=== PATIENT | male | born 1965 | race Caucasian/White ===

== ENCOUNTER 2020-06-01 15:01 | Inpatient (IN) | payer BC, OTHER ==
[~2020-06-01] VITALS: Ht 172.7 cm; Wt 83.3 kg
[2020-06-01] MEDS ORDERED: ONDANSETRON 2MG/ML, 2ML IVPush ONE (15:30)
[2020-06-01] MEDS ORDERED: PANTOPRAZOLE 40 MG IV IVPush ONE ×2 (15:30→16:00)
[2020-06-01] MEDS ORDERED: SODIUM CHLORIDE FLUSH 10ML SYR IVF ONE (15:30)
[2020-06-01] MEDS ORDERED: FAMOTIDINE 20 MG/2 ML IVPush ONE (15:30)
[2020-06-01] MEDS ORDERED: SODIUM CHLORIDE 0.9% 1,000ML IVBOLUS ONE (15:30)
[2020-06-01] MEDS ORDERED: PANTOPRAZOLE 40 MG IV ONE ×2 (16:00→16:27)
[2020-06-01] MEDS ORDERED: FAMOTIDINE 20 MG/2 ML ONE (16:00)
[2020-06-01] MEDS ORDERED: ONDANSETRON 2MG/ML, 2ML ONE (16:00)
[2020-06-01] MEDS ORDERED: PANTOPRAZOLE 80 MG in SODIUM CHLORIDE 0.9% 100 ML IV SCH (16:00)
[2020-06-01 16:08] LABS: BASOPHILS % (AUTO) 0 % (0-1); EOSINOPHILS % (AUTO) 4 % (1-7); LYMPHOCYTES % (AUTO) 14 % (22-44); MEAN CORPUSCULAR HEMOGLOBIN 29.6 pg (27.5-34.5); MEAN CORPUSCULAR HGB CONC 32.8 g/dL (33.2-36.2); MEAN PLATELET VOLUME 8.1 fL (7.4-10.4); MONOCYTES % (AUTO) 7 % (2-9); NEUTROPHILS % (AUTO) 75 % (42-75); PLATELET COUNT 278 x10^3/uL (130-400); RED BLOOD COUNT 3.91 x10^6/uL (4.38-5.82); RED CELL DISTRIBUTION WIDTH 13.9 % (9.4-14.8)
[2020-06-01 16:09] LABS: MD NO
[2020-06-01 16:18] LABS: ALANINE AMINOTRANSFERASE 34 U/L (12-78); ALBUMIN 3.1 g/dL (3.4-5.0); CALCIUM 7.7 mg/dL (8.5-10.1); CHLORIDE 113 mmol/L (98-107); CREATININE 0.77 mg/dL (0.7-1.3)
[2020-06-01 16:20] LABS: ALKALINE PHOSPHATASE 101 U/L (45-117); BILIRUBIN,TOTAL 0.3 mg/dL (0.2-1.0)
[2020-06-01 16:31] LABS: ANION GAP 4 mmol/L (5-15)
[2020-06-01] MEDS ORDERED: ONDANSETRON ODT 4 MG PO PRN (17:00)
[2020-06-01] MEDS ORDERED: ACETAMINOPHEN 325 MG TABLET PO PRN (17:00)
[2020-06-01] MEDS ORDERED: ONDANSETRON 2MG/ML, 2ML IVPush PRN (17:00)
[2020-06-01] MEDS: PANTOPRAZOLE 80 MG in SODIUM CHLORIDE 0.9% 100 ML IV SCH (17:00)
[2020-06-01] MEDS: CEFTRIAXONE PMX 2GM/50ML 50 ML IVPB SCH (17:00)
[2020-06-01] MEDS: SODIUM CHLORIDE 0.9% 1,000 ML IV SCH (17:00)
[2020-06-01] MEDS ORDERED: CEFTRIAXONE PMX 1GM/50ML 50 ML ONE (17:18)
[2020-06-01] MEDS ORDERED: CEFTRIAXONE PMX 2GM/50ML 50 ML ONE (17:26)
[2020-06-01 18:03] LABS: INTERNATIONAL NORMALIZED RATIO 1.08 (0.93-1.1); PROTHROMBIN TIME 11.4 Seconds (9.6-11.5)
--- NOTE | 2020-06-01 18:18 | NUR ---
PT COMES IN WITH COMPLAINT OF VOMITING BLOOD STARTING APPROXIMATELY 45 MINUTES PRIOR TO ARRIVAL. PT RESTING IN OMAR CHAN AT THIS TIME, AT BEDSIDE, MONITORING IN PLACE. PER PT NO NEEDS AT THIS TIME, WILL CONTINUE TO MONITOR.
[2020-06-01] MEDS ORDERED: METRONIDAZOLE PMX 500MG/100ML 100 ML ONE (19:05)
[2020-06-01] MEDS: METRONIDAZOLE PMX 500MG/100ML 100 ML IV SCH (19:10)
--- NOTE | 2020-06-01 19:13 | NUR ---
Covering for break. Pt a/ox4 no active n/v. IV #2 started, flagyl infusing. VSS, NPO status reaffirmed with pt. Waiting for tele bed. AIDET provided.
[2020-06-01] MEDS ORDERED: ONDANSETRON ODT 4 MG ONE (19:16)
--- NOTE | 2020-06-01 19:19 | NUR ---
Now with slight nausea, odt zofran admin. AIDET provided.
--- NOTE | 2020-06-01 19:37 | NUR ---
Care handed back over to primary JUSTINO Hathaway.
--- NOTE | 2020-06-01 20:08 | NUR ---
PT RESTING IN OMAR CHAN AT THIS TIME, MONITORING IN PLACE, AT BS. PER PT NO NEEDS AT THIS TIME, WILL CONTINUE TO MONITOR.
[2020-06-01 23:30] VITALS: BP 100/63
[2020-06-02] MEDS: LACTOBACILLUS CHEW TABLET PO SCH ×4 (00:09→20:57)
[2020-06-02] MEDS: SODIUM CHLORIDE 0.9% 1,000 ML IV SCH ×2 (02:58→17:17)
[2020-06-02] MEDS: METRONIDAZOLE PMX 500MG/100ML 100 ML IV SCH ×3 (02:58→17:17)
[2020-06-02 03:02] VITALS: BP 112/49
[2020-06-02] MEDS: PANTOPRAZOLE 80 MG in SODIUM CHLORIDE 0.9% 100 ML IV SCH ×3 (04:07→23:39)
[2020-06-02 05:55] LABS: CHLORIDE 113 mmol/L (98-107)
[2020-06-02 06:02] LABS: ANION GAP 2 mmol/L (5-15); CALCIUM 7.9 mg/dL (8.5-10.1); CREATININE 0.73 mg/dL (0.7-1.3)
[2020-06-02 07:20] VITALS: BP 113/62
[2020-06-02] MEDS ORDERED: ASCO100019 PO (11:30)
[2020-06-02] MEDS ORDERED: VITA200C33 PO (11:30)
[2020-06-02] MEDS ORDERED: MULT-257 PO (11:30)
[2020-06-02] MEDS ORDERED: PANA1CAP PO (11:30)
[2020-06-02] MEDS ORDERED: MV-M1TAB16 PO (11:30)
[2020-06-02] MEDS ORDERED: DIPH25CA61 PO (11:30)
[2020-06-02] MEDS ORDERED: MELA10CA PO (11:30)
[2020-06-02] MEDS ORDERED: CALC-316 PO (11:30)
[2020-06-02] MEDS ORDERED: MULT-211 PO (11:30)
[2020-06-02] MEDS ORDERED: CYAN1TAB29 PO (11:30)
[2020-06-02 12:40] VITALS: BP 103/65
[2020-06-02] MEDS ORDERED: GLYCOPYRROLATE 0.2MG/1ML, 5ML ONE (13:17)
[2020-06-02] MEDS ORDERED: MIDAZOLAM 1 MG/ML, 2ML ONE (13:17)
[2020-06-02] MEDS ORDERED: PROPOFOL 10 MG/ML, 20ML ONE (13:17)
[2020-06-02] MEDS ORDERED: DEXAMETHASONE 4 MG/ML, 5ML ONE (13:17)
[2020-06-02] MEDS ORDERED: FENTANYL PF 100 MCG/2ML IV PRN (14:30)
[2020-06-02] MEDS ORDERED: METOCLOPRAMIDE 5 MG/ML, 2ML IVPush PRN (14:30)
[2020-06-02] MEDS ORDERED: HYDROcodone/APAP 7.5-325MG/15ML UDC PO PRN (14:30)
[2020-06-02] MEDS ORDERED: MIDAZOLAM 1 MG/ML, 2ML IV PRN (14:30)
[2020-06-02] MEDS ORDERED: ONDANSETRON 2MG/ML, 2ML IVPush PRN (14:30)
[2020-06-02] MEDS ORDERED: EPHEDRINE 50 MG/ML, 1ML IM PRN (14:30)
[2020-06-02] MEDS: CEFTRIAXONE PMX 2GM/50ML 50 ML IVPB SCH (16:12)
[2020-06-02] MEDS: SUCRALFATE 1 GM TABLET PO SCH ×2 (16:12→20:58)
[2020-06-02 19:33] VITALS: BP 123/74
[2020-06-02] MEDS ORDERED: MELATONIN 5 MG TABLET PO PRN (23:00)
[2020-06-03 01:41] VITALS: BP 95/59
[2020-06-03] MEDS: METRONIDAZOLE PMX 500MG/100ML 100 ML IV SCH ×2 (03:15→10:30)
[2020-06-03 05:34] LABS: BASOPHILS % (AUTO) 0 % (0-1); EOSINOPHILS % (AUTO) 0 % (1-7); LYMPHOCYTES % (AUTO) 6 % (22-44); MEAN CORPUSCULAR HEMOGLOBIN 29.8 pg (27.5-34.5); MEAN CORPUSCULAR HGB CONC 33.1 g/dL (33.2-36.2); MONOCYTES % (AUTO) 4 % (2-9); NEUTROPHILS % (AUTO) 90 % (42-75); PLATELET COUNT 241 x10^3/uL (130-400); RED BLOOD COUNT 2.97 x10^6/uL (4.38-5.82); RED CELL DISTRIBUTION WIDTH 13.8 % (9.4-14.8)
[2020-06-03 05:38] LABS: MD NO
[2020-06-03 05:42] LABS: % IRON SATURATION 11 % (20-55); ANION GAP 3 mmol/L (5-15); CALCIUM 8.4 mg/dL (8.5-10.1); CHLORIDE 113 mmol/L (98-107); CREATININE 0.93 mg/dL (0.7-1.3); IRON LEVEL 29 mcg/dL (65-175); TOTAL IRON BINDING CAPACITY 258 mcg/dL (250-450)
[2020-06-03] MEDS: SUCRALFATE 1 GM TABLET PO SCH ×2 (08:47→10:29)
[2020-06-03] MEDS: SODIUM CHLORIDE 0.9% 1,000 ML IV SCH (08:47)
[2020-06-03] MEDS: LACTOBACILLUS CHEW TABLET PO SCH (08:47)
[2020-06-03] MEDS: PANTOPRAZOLE 80 MG in SODIUM CHLORIDE 0.9% 100 ML IV SCH (09:00)
[2020-06-03 09:42] VITALS: BP 114/71
[2020-06-03] MEDS ORDERED: FERROUS SULFATE 325 MG TABLET PO SCH (10:00)
[2020-06-03] MEDS ORDERED: OMEP-110 PO (11:44)
[2020-06-03] MEDS ORDERED: ACID1TAB7 PO (11:44)
[2020-06-03] MEDS ORDERED: SUCR1TAB33 PO (11:44)
[2020-06-03] MEDS ORDERED: FERR-51 PO (11:44)
[2020-06-03 12:25] VITALS: BP 125/70
[2020-06-03] MEDS ORDERED: OMEPRAZOLE 20 MG CAPSULE.DR PO SCH (16:00)
== END 2020-06-03 12:47 | disposition home or self-care (01) | DRG 378 ==
LOC: ED 17:19 → EDIP 17:54 → 5SO 22:44 → DCLOUNGE 06-03 12:36
PROVIDERS: ADMIT Hospitalist; ATTEND Hospitalist
PROC: 0DB68ZX Excision of Stomach, Via Natural or Artificial Opening Endoscopic, Diagnostic (ICD-10-PCS; principal; 2020-06-02 15:00)
DX: K26.4 Chronic or unspecified duodenal ulcer with hemorrhage (principal); D62 Acute posthemorrhagic anemia; D50.9 Iron deficiency anemia, unspecified; R79.89 Other specified abnormal findings of blood chemistry; Z20.828 Contact with and (suspected) exposure to other viral communicable diseases; M72.2 Plantar fascial fibromatosis
CPT/HCPCS: 36415; 74021; 80048; 80053; 83540; 83550; 83690; 85018; 85025; 85610; 87635; 88305; G0378; J0696; J1100; J2250; J2405; J2704; Q0162; C9113; J7030